=== PATIENT | male | born 1980 | race American Indian/Alaskan Native ===

== ENCOUNTER 2020-04-17 02:30 | Emergency (ER) | payer MEDICAID, OTHER ==
--- NOTE | 2020-04-17 02:47 | EDM.PDOC ---
ED HPI GENERAL MEDICAL PROBLEM - General Chief Complaint: ENT Problem Stated Complaint: EAR PAIN Time Seen by Provider: 04/17/20 02:40 Source of Information: Reports: Patient History Limitations: Reports: No Limitations - History of Present Illness INITIAL COMMENTS - FREE TEXT/NARRATIVE: c/o left ear pain past few weeks, not getting better, saw nobody. can't sleep tonight. Left Ear Pain Score (Numeric/FACES): 6 ED ROS ENT - Review of Systems Review Of Systems: Comprehensive ROS is negative, except as noted in HPI. ED EXAM, ENT - Physical Exam Exam: See Below Exam Limited By: No Limitations General Appearance: Alert, WD/WN, Mild Distress, Other ([place]) Ears: Canal Discharge, Canal Swelling, TM Dullness, Other (left O.E) Mouth/Throat: Normal Inspection Head: Atraumatic Neck: Non-Tender, Full Range of Motion Respiratory/Chest: No Respiratory Distress Cardiovascular: Regular Rate, Rhythm GI/Abdominal: Soft, Non-Tender (Male) Exam: Deferred Rectal (Males) Exam: Deferred Neurological: Alert, Oriented, Normal Cognition, Normal Gait, No Motor/Sensory Deficits Psychiatric: Flat Affect Skin: Warm, Dry Lymphatic: No Adenopathy Course - Vital Signs Last Recorded V/S: Last Vital Signs Temp 36.4 C 04/17/20 02:40 Pulse 91 04/17/20 02:40 Resp 16 04/17/20 02:40 BP 145/96 H 04/17/20 02:40 Pulse Ox 97 04/17/20 02:40 Departure - Departure Time of Disposition: 02:45 Disposition: Home, Self-Care 01 Preliminary Cause of *Q: Sepsis & Multi System Organ Failure Clinical Impression: Otitis externa Qualifiers: Otitis externa type: diffuse Chronicity: acute Laterality: left Qualified Code(s): H60.312 - Diffuse otitis externa, left ear - Discharge Information Instructions: Otitis Externa, [id number] Additional Instructions: 1) don't get water into ear 2) follow up at clinic rx togo; corticosporin otic 2 drops qid x 1 week Sepsis Event Note (ED) - Evaluation Sepsis Screening Result: No Definite Risk - Focused Exam Vital Signs: Vital Signs Temp Pulse Resp BP Pulse Ox 04/17/20 02:40 36.4 C 91 16 145/96 H 97
[2020-04-17] MEDS ORDERED: Hydrocortisone/Neomycin/Polymyxin B Otic Susp 10 ML Bottle ONE (02:50)
== END 2020-04-17 02:56 | disposition home or self-care (01) ==
LOC: DL.ED 02:30
DX: H60.312 Diffuse otitis externa, left ear (principal); H60.502 Unspecified acute noninfective otitis externa, left ear
CPT/HCPCS: 99282; A9270

== ENCOUNTER 2021-07-09 03:07 | Emergency (ER) | payer MEDICAID, OTHER ==
[2021-07-09] MEDS ORDERED: Acetaminophen 500 MG Tab PO ONE (03:32)
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
== END 2021-07-09 03:53 | disposition home or self-care (01) ==
LOC: DL.ED 03:07
DX: S01.511A Laceration without foreign body of lip, initial encounter (principal); Z72.0 Tobacco use; F10.120 Alcohol abuse with intoxication, uncomplicated; Y04.0XXA Assault by unarmed brawl or fight, initial encounter
CPT/HCPCS: 99284; A9270

== ENCOUNTER 2021-07-11 21:12 | Emergency (ER) | payer MEDICAID, OTHER ==
[2021-07-11 21:54] LABS: MDMA (ECSTASY), URINE NEGATIVE (NEGATIVE); METHADONE,URINE NEGATIVE (NEGATIVE); METHAMPHETAMINES,URINE NEGATIVE (NEGATIVE); OPIATES,URINE NEGATIVE (NEGATIVE)
[2021-07-11 21:55] LABS: AMPHETAMINES,URINE NEGATIVE (NEGATIVE); BARBITURATES,URINE NEGATIVE (NEGATIVE); BENZODIAZEPINE,URINE NEGATIVE (NEGATIVE); OXYCODONE,URINE NEGATIVE (NEGATIVE); PHENCYCLIDINE,URINE NEGATIVE (NEGATIVE); TCA,URINE NEGATIVE (NEGATIVE)
[2021-07-11 22:20] LABS: ANION GAP 18.4 mEq/L (7-13); CHLORIDE,CL 108 mmol/L (98-107); SODIUM,NA 145 mmol/L (136-145)
[2021-07-11 22:21] LABS: ACETAMINOPHEN 0 ug/mL (10-30 (Therapeutic))
[2021-07-12] MEDS ORDERED: Sodium Chloride 0.9% 1,000 ML IV ONE ×3 (00:27→00:29)
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
== END 2021-07-12 01:55 | disposition home or self-care (01) ==
LOC: DL.ED 21:12
DX: F10.10 Alcohol abuse, uncomplicated (principal); Z20.822 Contact with and (suspected) exposure to COVID-19; Z91.19 Patient's noncompliance with other medical treatment and regimen; Y90.6 Blood alcohol level of 120-199 mg/100 ml
CPT/HCPCS: 36415; 80053; 80143; 80179; 80305-QW; 80307; 82140; 82150; 83605; 83690; 85025; 93005; 99284-25; J7030; U0002

== ENCOUNTER 2021-07-20 00:46 | Emergency (ER) | payer MEDICAID, OTHER ==
[2021-07-20] MEDS: MVI, Adult with Vitamin K 10 ML, Folic Acid 1 MG, Thiamine 100 MG in Lactated Ringers 1... IV ONE ×4 (01:03)
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
[2021-07-20 01:21] LABS: ACETAMINOPHEN 0 ug/mL (10-30 (Therapeutic)); ANION GAP 24.9 mEq/L (7-13); CHLORIDE,CL 100 mmol/L (98-107); SODIUM,NA 139 mmol/L (136-145)
== END 2021-07-20 03:45 | disposition home or self-care (01) ==
LOC: DL.ED 00:46
DX: F10.129 Alcohol abuse with intoxication, unspecified (principal); Y90.8 Blood alcohol level of 240 mg/100 ml or more
CPT/HCPCS: 36415; 80053; 80143; 80179; 80307; 83735; 85025; 96365; 99284-25; J3411; J3490; J7120

== ENCOUNTER 2021-08-06 08:15 | Emergency (ER) | payer MEDICAID, OTHER ==
[2021-08-06 09:13] LABS: CORONAVIRUS COVID-19 NAA NEGATIVE (NEGATIVE)
--- NOTE | 2021-08-06 09:52 | EDM.PDOC ---
ED HPI GENERAL MEDICAL PROBLEM - General Chief Complaint: Fever Stated Complaint: CHEST CONGESTION / LIGHT HEADED / FEELS SICK Time Seen by Provider: 08/06/21 09:48 Source of Information: Reports: Patient, Old Records, RN, RN Notes Reviewed History Limitations: Reports: No Limitations - History of Present Illness INITIAL COMMENTS - FREE TEXT/NARRATIVE: Pt presents to ER from home by POV with c/o waking with fever, congestion, cough, and feeling sick. Denies chest pain, vomiting, or diarrhea. Onset: Today, Sudden Duration: Constant Location: Reports: Generalized Quality: Reports: Ache Severity: Moderate Improves with: Reports: None Worsens with: Reports: None Context: Reports: Sick Contact Associated Symptoms: Reports: No Other Symptoms - Related Data Allergies Allergy/AdvReac Type Severity Reaction Status Date / Time No Known Allergies Allergy Verified 08/06/21 10:00 Home Meds: Home Meds Med For Back Pain 07/11/21 [History] Seroquel 07/11/21 [History] Past Medical History Psychiatric History: Reports: Addiction Social & Family History - Family History Family Medical History: No Pertinent Family History - Caffeine Use Caffeine Use: Reports: Soda - Alcohol Use Alcohol Use History: Yes - Recreational Drug Use Recreational Drug Use: Yes Recreational Drug Use Frequency: Patient Refuses To Answer ED ROS GENERAL - Review of Systems Review Of Systems: Comprehensive ROS is negative, except as noted in HPI. ED EXAM, GENERAL - Physical Exam Exam: See Below Exam Limited By: No Limitations General Appearance: Alert, WD/WN, No Apparent Distress, Anxious Eye Exam: Bilateral Eye: Normal Inspection Nose: Clear Rhinorrhea Throat/Mouth: Normal Inspection, Normal Lips, Normal Oropharynx, Normal Voice, No Airway Compromise Head: Atraumatic, Normocephalic Neck: Normal Inspection, Supple, Non-Tender, Full Range of Motion. No: Lymphadenopathy (L), Lymphadenopathy (R) Respiratory/Chest: No Respiratory Distress, Lungs Clear, Normal Breath Sounds, No Accessory Muscle Use, Chest Non-Tender, Other (Dry cough) Cardiovascular: Regular Rate, Rhythm GI/Abdominal: Normal Bowel Sounds, Soft, Non-Tender, No Organomegaly, No Distention, No Abnormal Bruit, No Mass Back Exam: Normal Inspection Extremities: Normal Inspection Neurological: Alert, Oriented, CN II-XII Intact, Normal Cognition, Normal Gait, No Motor/Sensory Deficits Psychiatric: Normal Affect, Normal Mood Skin Exam: Warm, Dry, Intact, Normal Color, No Rash Course - Vital Signs Last Recorded V/S: Last Vital Signs Temp 97.4 F 08/06/21 10:01 Pulse 86 08/06/21 10:01 Resp 20 08/06/21 10:01 BP 147/112 H 08/06/21 10:01 Pulse Ox 96 08/06/21 10:01 - Orders/Labs/Meds Labs: Laboratory Tests 08/06/21 Range/Units 08:25 Influenza Type A RNA Positive H (NEGATIVE) Influenza Type B RNA Negative (NEGATIVE) SARS-CoV-2 RNA ([facility]) Negative (NEGATIVE) Departure - Departure Time of Disposition: 10:15 Disposition: Home, Self-Care 01 Condition: Good Clinical Impression: Influenza A - Discharge Information *PRESCRIPTION DRUG MONITORING PROGRAM REVIEWED*: Not Applicable *COPY OF PRESCRIPTION DRUG MONITORING REPORT IN PATIENT PATRICIA: Not Applicable Instructions: Influenza, Adult, [id number] Forms: ED Department Discharge Additional Instructions: Rx: Tamiflu 75mg Rx: Promethazine-Codeine Syrup Rx: Zyrtec 10mg Use Tylenol (Acetaminophen) and/or Ibuprofen (Motrin/Advil) as needed for fevers or body aches. Follow directions on label for dosing and precautions. Drink plenty of water, Pedialyte, or Gatorade. Follow up in clinic or return to ER if you develop any difficulty breathing. Sepsis Event Note (ED) - Focused Exam Vital Signs: Vital Signs Temp Pulse Resp BP Pulse Ox 08/06/21 10:01 97.4 F 86 20 147/112 H 96
== END 2021-08-06 10:12 | disposition home or self-care (01) ==
LOC: DL.ED 08:15
DX: J10.1 Influenza due to other identified influenza virus with other respiratory manifestations (principal); Z20.822 Contact with and (suspected) exposure to COVID-19
CPT/HCPCS: 0240U; 99283

== ENCOUNTER 2021-10-14 18:13 | Emergency (ER) | payer BC ==
[2021-10-14] MEDS ORDERED: Ondansetron 4 MG Tab.DIS PO ONE ×2 (18:14→18:49)
[2021-10-14] MEDS ORDERED: Ondansetron 4 MG Tab.DIS ONE (19:02)
== END 2021-10-14 19:04 | disposition home or self-care (01) ==
LOC: DL.ED 18:13
DX: R11.2 Nausea with vomiting, unspecified (principal)
CPT/HCPCS: 99283; A9270-GY

== ENCOUNTER 2021-12-18 13:41 | Emergency (ER) | payer BC ==
[2021-12-18] MEDS ORDERED: Iopamidol 612 MG/ML 100 ML Bottle IVPUSH ONE (14:05)
[2021-12-18 14:38] LABS: ANION GAP 13.1 mEq/L (7-13); CHLORIDE,CL 104 mmol/L (98-107); SODIUM,NA 138 mmol/L (136-145)
[2021-12-18] MEDS ORDERED: Lidocaine 1% 30 ML SDV INJECT ONE (15:38)
== END 2021-12-18 17:20 | disposition home or self-care (01) ==
LOC: DL.ED 13:41
DX: L02.11 Cutaneous abscess of neck (principal)
CPT/HCPCS: 10060; 36415; 70491; 80053; 83605; 85025; 87040; 96365; 99281; 99284-25; J3370; J7040; Q9967

== ENCOUNTER 2022-02-25 01:25 | Emergency (ER) | payer BC, MEDICAID ==
[2022-02-25] MEDS ORDERED: Bacitracin Oint 1 GM U/D Packet ONE (01:38)
== END 2022-02-25 03:10 | disposition home or self-care (01) ==
LOC: DL.ED 01:25
DX: Z48.01 Encounter for change or removal of surgical wound dressing (principal)
CPT/HCPCS: 99283

== ENCOUNTER 2022-03-04 06:47 | Emergency (ER) | payer MEDICAID ==
[2022-03-04] MEDS ORDERED: Bacitracin Oint 1 GM U/D Packet TOP ONE (07:35)
== END 2022-03-04 10:15 | disposition home or self-care (01) ==
LOC: DL.ED 06:47
DX: Z48.00 Encounter for change or removal of nonsurgical wound dressing (principal); Z48.02 Encounter for removal of sutures; Z87.891 Personal history of nicotine dependence
CPT/HCPCS: 99282; 99283

== ENCOUNTER 2022-06-19 18:16 | Emergency (ER) | payer MEDICAID | END 2022-06-19 18:55 | disposition left against medical advice (07) | LOC: DL.ED 18:16 | DX: Z53.21 Procedure and treatment not carried out due to patient leaving prior to being seen by health care provider (principal) ==

== ENCOUNTER 2023-06-23 18:46 | Emergency (ER) | payer MEDICAID ==
[2023-06-23 19:53] LABS: INFLUENZA A NAA NEGATIVE (NEGATIVE); INFLUENZA B NAA NEGATIVE (NEGATIVE)
[2023-06-23 19:56] LABS: CORONAVIRUS COVID-19 NAA POSITIVE (NEGATIVE)
[2023-06-23] MEDS ORDERED: Ibuprofen 800 MG Tab PO ONE (19:58)
[2023-06-23] MEDS ORDERED: Benzonatate 100 MG Cap PO ONE (19:58)
== END 2023-06-23 20:18 | disposition home or self-care (01) ==
LOC: DL.ED 18:46
DX: U07.1 COVID-19 (principal); I10 Essential (primary) hypertension; E66.9 Obesity, unspecified; Z68.42 Body mass index [BMI] 45.0-49.9, adult; Z79.899 Other long term (current) drug therapy
CPT/HCPCS: 0240U; 99283; A9270

== ENCOUNTER 2023-08-30 15:50 | Emergency (ER) | payer MEDICAID ==
[2023-08-30] MEDS ORDERED: LORazepam 2 MG/ML SDV IVPUSH ONE (15:58)
== END 2023-08-30 17:27 | disposition home or self-care (01) ==
LOC: DL.ED 15:50
DX: F41.9 Anxiety disorder, unspecified (principal); R07.89 Other chest pain; I10 Essential (primary) hypertension; E66.9 Obesity, unspecified; Z79.899 Other long term (current) drug therapy
CPT/HCPCS: 36415; 71045; 84484; 93005; 96374; 99285; J2060; 93010; 99284

== ENCOUNTER 2024-08-03 08:11 | Emergency (ER) | payer MEDICAID ==
[2024-08-03] MEDS: Sodium Chloride 0.9% 10 ML Syringe FLUSH PRN (08:48)
[2024-08-03] MEDS: Sodium Chloride 0.9% 1,000 ML IV ONE ×4 (08:49→14:55)
[2024-08-03 08:57] LABS: BASOPHILS PERCENT AUTO 0.2 % (0.0-1.0); EOSINOPHILS PERCENT AUTO 0.1 % (1.0-3.0); HEMATOCRIT 46.8 % (40.0-54.0); HEMOGLOBIN 15.6 g/dL (14.0-18.0); LYMPHOCYTES PERCENT AUTO 11.6 % (20.5-50.1); MEAN CORPUSCULAR HEMOGLOBIN 31.9 pg (27.0-34.0); MEAN CORPUSCULAR HGB CONC 33.3 g/dL (33.0-35.0); MEAN CORPUSCULAR VOLUME 95.7 fL (80-100); MONOCYTES PERCENT AUTO 9.4 % (2-8); NEUTROPHILS PERCENT AUTO 78.7 % (42.2-75.2); PLATELET COUNT,PLT 202 10^3/uL (150-450); RED BLOOD CELL COUNT 4.89 10^6/uL (4.6-6.2); WHITE BLOOD CELL COUNT,WBC 19.8 10^3/uL (5.0-10.0)
[2024-08-03 09:24] LABS: PROTHROMBIN TIME 10.5 SEC (9.0-12.0); PTT,PARTIAL THROMBOPLSTIN TIME 25.2 SEC (22.0-34.0)
[2024-08-03 09:48] LABS: ALBUMIN 2.6 g/dL (3.4-5.0); ANION GAP 20.2 mEq/L (7-13); BILIRUBIN TOTAL 0.9 mg/dL (0.2-1.0); BUN/CREATININE RATIO 9.8 (No establ ref range); C-REACTIVE PROTEIN 19.06 ng/dL (<=0.50); EST CRCL DRUG DOSING (CG) 16.1 mL/min; MAGNESIUM 2.3 mg/dL (1.8-2.4); POTASSIUM,K 4.2 mmol/L (3.5-5.1); PROTEIN TOTAL,TP 7.3 g/dL (6.4-8.2)
[2024-08-03 09:51] LABS: LACTIC ACID 1.7 mmol/L (0.4-2.0)
[2024-08-03 09:57] LABS: A/G RATIO 0.55
[2024-08-03 09:59] LABS: CREATININE 6.11 mg/dL (0.70-1.30)
[2024-08-03] MEDS: Piperacillin/Tazobactam 3.375 GM in Sodium Chloride 0.9% 100 ML IV ONE (11:06)
[2024-08-03 11:22] LABS: EST CRCL DRUG DOSING (CG) 16.84 mL/min
[2024-08-03 11:23] LABS: CREATININE 5.84 mg/dL (0.70-1.30)
[2024-08-03 11:31] LABS: APPEARANCE,URINE SLIGHTLY CLOUDY (CLEAR); BILIRUBIN,URINE SMALL (NEGATIVE); COLOR,URINE AMBER (YELLOW); GLUCOSE,URINE NEGATIVE (NEGATIVE); KETONES,URINE NEGATIVE (NEGATIVE); LEUKOCYTE ESTERASE,URINE NEGATIVE (NEGATIVE); NITRITE,URINE NEGATIVE (NEGATIVE); OCCULT BLOOD,URINE LARGE (NEGATIVE); PH,URINE 5.5 (5.0-9.0); PROTEIN,URINE 100 (NEGATIVE); UROBILINOGEN,URINE 0.2 mg/dL (0.2-1.0)
[2024-08-03] MEDS: VANCOmycin 2 GM in Sodium Chloride 0.9% 500 ML IV ONE (11:39)
[2024-08-03 11:59] LABS: AMORPHOUS SEDIMENT,URINE MODERATE /HPF (NOT SEEN); BACTERIA,URINE FEW /HPF (0-FEW/HPF); EPITHELIAL CELLS,URINE FEW /HPF (NOT SEEN); GRANULAR CASTS,URINE RARE; HYALINE CASTS,URINE FEW; MUCUS,URINE FEW /LPF (NOT SEEN); WBC,URINE 0-5 /HPF (0-5/HPF)
[2024-08-03] MEDS: HYDROmorphone 1 MG/ML Syringe IVPUSH ONE (16:53)
== END 2024-08-03 18:20 ==
LOC: DL.ED 08:11
DX: A41.9 Sepsis, unspecified organism (principal); R65.20 Severe sepsis without septic shock; N17.9 Acute kidney failure, unspecified; L03.317 Cellulitis of buttock; M62.82 Rhabdomyolysis; I10 Essential (primary) hypertension; E11.9 Type 2 diabetes mellitus without complications; E66.9 Obesity, unspecified; F17.210 Nicotine dependence, cigarettes, uncomplicated; Z79.899 Other long term (current) drug therapy; Z68.41 Body mass index [BMI] 40.0-44.9, adult
CPT/HCPCS: 36415; 80053; 81001; 82550; 82565; 82947; 83605; 83735; 84145; 84550; 85025; 85610; 85730; 86140; 87040; 87070; 87077; 87186; 93005; 96361; 96365; 96366; 96367; 99285; J2543; J3490; J7030; J7040